=== PATIENT | male | born 1930 | race Caucasian/White ===

== ENCOUNTER 2019-02-11 12:12 | Emergency (ER) | payer MEDICARE, OTHER ==
--- NOTE | 2019-02-11 13:06 | ER Document Report ---
ED Medical Screen (RME) - General Stated Complaint: POSSIBLE STROKE Time Seen by Provider: 02/11/19 12:47 Primary Care Provider: CRYSTAL CHEN PA-C [Primary Care Provider] - Follow up as needed Notes: 88-year-old male with coronary artery disease, hypertension, BPH presents to the emergency department with concerns for a possible stroke. Patient states that he has this sensation in his head that comes and goes that arrests his speech. He states it is not a headache per se qualify it. Denies any confusion, slurred speech, acute limb weakness, denies nausea or vomiting, denies diaphoresis, denies chest pain. Patient is not on anticoagulation. NEURO: A &O X 3, normal speech, PERRL, EOMI, SILT, follows commands in all 4 extremities, no gross abnormalities of cranial nerves, no focal neuro deficits, no pronator drift, [id number] testing normal, [id number] normal, management expert strength 5/5 bilateral, 5/5 strength in both proximal and distal upper and lower extremities I have greeted and performed a rapid initial assessment of this patient. A comprehensive ED assessment and evaluation of the patient, analysis of test results and completion of medical decision making process will be conducted by an additional ED providers. Physical Exam - Vital signs Vitals: Temp Pulse Resp BP Pulse Ox 97.3 F 114 H 16 133/83 H 95 02/11/19 12:18 02/11/19 12:18 02/11/19 12:18 02/11/19 12:18 02/11/19 12:18 Course - Vital Signs Vital signs: Temp Pulse Resp BP Pulse Ox 97.3 F 114 H 16 133/83 H 95 02/11/19 12:18 02/11/19 12:18 02/11/19 12:18 02/11/19 12:18 02/11/19 12:18 Doctor's Discharge - Discharge Referrals: CRYSTAL CHEN PA-C [Primary Care Provider] - Follow up as needed
[2019-02-11 13:50] LABS: ABSOLUTE BASOPHILS # (AUTO) 0.1 10^3/uL (0.0-0.2); ABSOLUTE EOSINOPHILS # (AUTO) 0.2 10^3/uL (0.0-0.6); ABSOLUTE LYMPHOCYTES (AUTO) 2.3 10^3/uL (0.5-4.7); ABSOLUTE MONOCYTES (AUTO) 0.6 10^3/uL (0.1-1.4); ABSOLUTE NEUT (AUTO) 6.8 10^3/uL (1.7-8.2); BASOPHILS % (AUTO) 1.2 % (0-2); EOSINOPHILS % (AUTO) 2.1 % (0-6); HEMATOCRIT 43.6 % (37.9-51.0); HEMOGLOBIN 14.7 g/dL (13.5-17.0); LYMPHOCYTES % (AUTO) 22.8 % (13-45); MEAN CORPUSCULAR HEMOGLOBIN 34.5 pg (27.0-33.4); MEAN CORPUSCULAR HGB CONC 33.7 g/dL (32.0-36.0); MEAN CORPUSCULAR VOLUME 102 fl (80-97); MONOCYTES % (AUTO) 5.8 % (3-13); PLATELET COUNT 249 10^3/uL (150-450); RED BLOOD COUNT 4.26 10^6/uL (4.35-5.55); RED CELL DISTRIBUTION WIDTH 14.2 % (11.5-14.0); SEGMENTED NEUTROPHILS % (AUTO) 68.1 % (42-78); TOTAL CELLS COUNTED % (AUTO) 100 %
[2019-02-11 13:58] LABS: INTERNATIONAL RATION (INR) 0.99; PROTHROMBIN TIME 13.1 SEC (11.4-15.4)
[2019-02-11 13:59] LABS: PARTIAL THROMBOPLASTIN TIME 26.1 SEC (23.5-35.8)
[2019-02-11 14:13] LABS: ALBUMIN 4.2 g/dL (3.5-5.0); ALKALINE PHOSPHATASE 96 U/L (38-126); ANION GAP 11 (5-19); ASPARTATE AMINO TRANSFERASE 33 U/L (17-59); BILIRUBIN,DIRECT 0.2 mg/dL (0.0-0.4); BILIRUBIN,TOTAL 0.4 mg/dL (0.2-1.3); BLOOD UREA NITROGEN 22 mg/dL (7-20); CALCIUM 9.7 mg/dL (8.4-10.2); CARBON DIOXIDE 24 mmol/L (22-30); CHLORIDE 105 mmol/L (98-107); GLUCOSE 150 mg/dL (75-110); POTASSIUM 5.1 mmol/L (3.6-5.0); TOTAL PROTEIN 7.4 g/dL (6.3-8.2)
--- NOTE | 2019-02-11 14:44 | RADIOLOGY REPORT (SQ) ---
EXAM DESCRIPTION: CT HEAD WITHOUT COMPLETED DATE/TIME: 02/11/2019 2:28 pm REASON FOR STUDY: BILLINGS COMPARISON: None. TECHNIQUE: Axial images acquired through the brain without intravenous contrast. Images reviewed wi th bone, brain and subdural windows. Additional sagittal and coronal reconstructions were generated. Images stored on PACS. All CT scanners at this facility use dose modulation, iterative reconstruction, and/or weight based d osing when appropriate to reduce radiation dose to as low as reasonably achievable (ALARA). [facility]: Dose Right [facility]: CareDose [facility]: Dose Right [facility]: Teradose 4D [facility]: Smart Mashape LIMITATIONS: None. FINDINGS: There is diffuse age-appropriate cerebral and cerebellar volume loss. The caliber of the ventricles is concordant with degree of sulcation. There is no hydrocephalus. There is no acute intracranial hemorrhage, vascular territorial infarct, extra-axial fluid collection , mass, mass effect or midline shift. There is no effacement of the cerebral sulci or basal subarach noid cisterns. The silva-white matter differentiation is preserved. The globes are aphakic. The orbits are intact. The paranasal sinuses are clear. There is no fractu re of the calvarium. IMPRESSION: No acute intracranial abnormality. EVIDENCE OF ACUTE STROKE: NO. COMMENT: Quality ID # [id number]: Final reports with documentation of one or more dose reduction techniques (e.g., Automated exposure control, adjustment of the mA and/or kV according to patient size, use of iterative reconstruction technique) TECHNICAL DOCUMENTATION: JOB ID: [id number] [employer]- All Rights Reserved Reading location - IP/workstation name: [email or web address]
--- NOTE | 2019-02-11 15:19 | ER Document Report ---
ED General - General Chief Complaint: Dizziness Stated Complaint: POSSIBLE STROKE Time Seen by Provider: 02/11/19 12:47 Primary Care Provider: CRYSTAL CHEN PA-C [NO LOCAL MD] - Follow up in 3-5 days Notes: 88-year-old male patient resents with lightheadedness. Began this morning lasted 10 minutes. Recurred about 3 hours later. Often with position. No vertigo no nausea vomiting no lateralizing neuro symptoms no chest pain or shortness of breath. "I just want to get checked out" he is a diabetic but sugar was normal both times this occurred. This is happened in the past. Denies active medications and said he is eating and drinking normally. TRAVEL OUTSIDE OF THE [place] IN LAST 30 DAYS: No - Related Data Allergies/Adverse Reactions: No Known Allergies Allergy (Unverified 02/11/19 13:10) Past Medical History - Social History Smoking Status: Never Smoker Chew tobacco use (# tins/day): No Frequency of alcohol use: None Drug Abuse: None Family History: None Patient has suicidal ideation: No Patient has homicidal ideation: No Review of Systems - Review of Systems Notes: REVIEW OF SYSTEMS GEN: Denies fever, chills, weight loss ENT: Denies sore throat, nasal discharge, ear pain EYES: Denies blurry vision, eye pain, discharge CV: Denies chest pain, palpitations, edema RESP: Denies cough, shortness of breath, wheezing GI: Denies abdominal pain, nausea, vomiting, diarrhea MSK: Denies joint pain/swelling, edema, SKIN: Denies rash, skin lesions LYMPH: Denies swollen glands/lymph nodes NEURO: Denies headache, focal weakness or numbness, dizziness PSYCH: Denies depression, suicidal or homicidal ideation PHYSICAL EXAMINATION General: No acute distress, well-nourished Head: Atraumatic, normocephalic ENT: Mouth normal, oropharynx moist, no exudates or tonsillar enlargement Eyes: Conjunctiva normal, pupils equal, lids normal Neck: No JVD, supple, no guarding CVS: Normal rate, regular rhythm, no murmurs Resp: No resp distress, equal and normal breath sounds bilaterally GI: Nondistended, soft, no tenderness to palpation, no rebound or guarding Ext: No deformities, no edema, normal range of motion in upper and lower ext Back: No CVA or midline TTP Skin: No rash, warm Lymphatic: No lymphadeopathy noted Neuro: Awake, alert. Face symmetric. GCS 15. No ataxia. Normal coordination, strength and sensation in all 4 extremity's face symmetric, cranial nerves intact memory intact speech fluent. Physical Exam - Vital signs Vitals: Temp Pulse Resp BP Pulse Ox 97.3 F 114 H 16 133/83 H 95 02/11/19 12:18 02/11/19 12:18 02/11/19 12:18 02/11/19 12:18 02/11/19 12:18 Course - Re-evaluation Re-evalutation: 02/11/19 23:56 Patient presents with positional dizziness not true vertigo normal neuro exam. Doubt bradycardia given episodic nature and normal EKG here. Labs are normal. No other abnormalities are detected and the patient is able to ambulate well. I do not believe he requires further imaging/admission looks well and can be followed up as an outpatient. Insert discharge insert discharge I have discussed with the patient there likely diagnosis, aftercare plan, follow-up plans and my usual and customary return precautions. They verbalized understanding of this. - Vital Signs Vital signs: Temp Pulse Resp BP Pulse Ox 97.5 F 114 H 12 102/60 97 02/11/19 16:28 02/11/19 12:18 02/11/19 16:28 02/11/19 16:28 02/11/19 16:28 - Laboratory Result Diagrams: 02/11/19 13:32 02/11/19 13:32 Laboratory results interpreted by me: 02/11/19 02/11/19 13:32 13:32 RBC 4.26 L MCV 102 H MCH 34.5 H RDW 14.2 H Potassium 5.1 H BUN 22 H Glucose 150 H - Diagnostic Test Radiology reviewed: Image reviewed, Reports reviewed - EKG Interpretation by Me EKG shows normal: Sinus rhythm Rate: Normal Rhythm: NSR When compared to previous EKG there are: No significant change Discharge - Discharge Clinical Impression: Dizziness on standing Condition: Good Disposition: HOME, SELF-CARE Instructions: Dizziness ([facility]) Referrals: CRYSTAL CHEN PA-C [NO LOCAL MD] - Follow up in 3-5 days
[2019-02-11 16:33] VITALS: BP 102/60
--- NOTE | 2019-02-12 13:09 | EKG REPORT ---
SEVERITY:- NORMAL ECG - SINUS RHYTHM : Confirmed by: Brittany Mcmahan MD 12-Feb-2019 13:08:02
== END 2019-02-11 16:42 | disposition home or self-care (01) ==
LOC: ER 12:12
DX: R42 Dizziness and giddiness (principal)
CPT/HCPCS: 36415; 70450; 80053; 82962; 84484; 85025; 85610; 85730; 93005; 93010; 99284